=== PATIENT | female | born 1975 | race Caucasian/White ===

== ENCOUNTER 2022-04-28 10:28 | Emergency (ER) | payer MEDICAID, SELFPAY ==
--- NOTE | ~2022-04-28 | XR_ITS ---
EXAMINATION: XR LUMBOSACRAL SPINE CLINICAL INFORMATION: Fall. Pain. COMPARISON: None TECHNIQUE: Three views of the lumbosacral spine. FINDINGS: There is mild curvature of the lower lumbar sacral spine to the left. Bone alignment is otherwise normal. No fracture or dislocation. Disc spaces are normal. Paraspinal soft tissues are normal. XR/XR lumbar spine 2-3V IMPRESSION: No fracture or dislocation.
--- NOTE | ~2022-04-28 | XR_ITS ---
EXAMINATION: XR ANKLE, LEFT CLINICAL INFORMATION: Fall. Pain. COMPARISON: None TECHNIQUE: AP, lateral, and mortise views of the left ankle. FINDINGS: The bones and soft tissues are normal. No fracture. Alignment is anatomic. Joint spaces are maintained. No joint effusion. Small plantar calcaneal spur. XR/XR ankle LT 2V IMPRESSION: Normal left ankle.
--- NOTE | ~2022-04-28 | CT_ITS ---
EXAMINATION: CT CERVICAL SPINE WITHOUT CONTRAST CLINICAL INFORMATION: Neck pain status post fall. COMPARISON: None TECHNIQUE: Multiple axial images of the cervical spine were obtained without the administration of intravenous contrast. Coronal and sagittal reformatted images were obtained. This CT examination was performed using dose optimization techniques as appropriate, variously including the following: *Automated exposure control *Adjustment of mA and/or kV according to patient size (this includes techniques or standardized protocols for targeted exams where dose is matched to indication/reason for exam; i.e. extremities or head) *Use of iterative reconstruction technique DLP: 724.73 mGy-cm FINDINGS: Mild cervical dextroscoliosis is seen with straightening of the normal cervical lordosis and spinal alignment. The vertebral bodies are intact. The intervertebral disc spaces are unremarkable. The neural foramina are patent. The facet joints are unremarkable. The odontoid and spinous processes are intact. The transverse processes are intact. The cervical soft tissues are unremarkable. There is no lymphadenopathy. The thyroid gland is unremarkable. The visualized lung bases are unremarkable. CT/CT cervical spine wo IV con IMPRESSION: Mild cervical dextroscoliosis with straightening of the normal cervical lordosis may be secondary to positioning and/or muscle spasm. No acute abnormality.
--- NOTE | ~2022-04-28 | CT_ITS ---
EXAMINATION: CT HEAD WITHOUT CONTRAST CLINICAL INFORMATION: Status post fall with head pain. COMPARISON: None TECHNIQUE: Contiguous axial imaging was performed from the skull base to vertex without intravenous administration of contrast. Coronal and sagittal reformatted images were obtained. This CT examination was performed using dose optimization techniques as appropriate, variously including the following: *Automated exposure control *Adjustment of mA and/or kV according to patient size (this includes techniques or standardized protocols for targeted exams where dose is matched to indication/reason for exam; i.e. extremities or head) *Use of iterative reconstruction technique DLP: 724.73 mGy-cm FINDINGS: The cortical sulci are normal. The lateral ventricles are symmetrical. The third and fourth ventricles are in their normal midline position. The basilar and prepontine cisterns are unremarkable. There is no acute intra or extracerebral abnormality. There is no mass effect or midline shift. Sections through the bony calvarium are unremarkable. The paranasal sinuses show mild mucosal thickening posteriorly in the maxillary sinuses. No air-fluid levels. The bony orbits and orbital contents are unremarkable. CT/CT head/brain wo IV con IMPRESSION: No acute intracranial pathology.
--- NOTE | ~2022-04-28 | XR_ITS ---
EXAMINATION: XR KNEE, LEFT CLINICAL INFORMATION: Fall. Pain. COMPARISON: None TECHNIQUE: Four views of the left knee. FINDINGS: Bone alignment is normal. There is depression and cortical deformity of the lateral tibial plateau. This probably represent changes from old trauma. No definite acute fracture. Small osteophytes at the medial femoral tibial joint. No joint effusion. XR/XR knee LT 4V IMPRESSION: Probable old trauma to the lateral tibial plateau. Mild degenerative changes at the medial femoral tibial joint.
--- NOTE | 2022-04-28 10:34 | ED.FALL ---
HPI - Fall General Chief Complaint: Fall Stated Complaint: UNWIT FALL,MID BACK,L KNEE PAIN,+CCOLLAR PER EMS Time Seen by Provider: 04/28/22 10:32 Source: patient, EMS and interpreter for the deaf Mode of arrival: EMS Limitations: language barrier History of Present Illness HPI Narrative: 47-year-old female with a history of migraines, carpal tunnel with chronic pain on tramadol, asthma presents with complaints of left knee pain, left ankle pain, low back pain and neck pain after a fall. Patient tells me she was walking in her kitchen when her right knee gave out on her causing her to fall landing on the left knee directly. Patient reports she then fell backwards hitting her lower back and her neck. Denies hitting her head or loss of consciousness. She reports that she has chronic right knee pain with instability which she has had for some time. No AC therapy use. No chest pain, abdominal pain, headache, vision changes, vomiting, weakness, numbness or tingling of the extremities Related Data Previous Rx's Medication Instructions Recorded cyclobenzaprine 10 mg tablet 10 mg PO TID PRN muscle spasm #10 04/28/22 tabs ibuprofen 600 mg tablet 600 mg PO Q6H PRN pain #30 tabs 04/28/22 Allergies Allergy/AdvReac Type Severity Reaction Status Date / Time SEASONAL ALLERGIES Allergy Mild CONGESTION Uncoded 04/28/22 12:31 Seasonal and Environmental - Allergy Unknown Uncoded 04/28/22 12:31 N Review of Systems Review of Systems: Yes all other systems are reviewed and are negative Constitutional: Constitutional: Reports no additional constitutional complaints, Denies body ache(s), Denies chills, Denies fever(s), Denies headache(s) and Denies weakness Eyes: Eyes: Reports no additional eye complaints and Denies change in vision ENT: Reports system reviewed and no additional complaints, except as documented, Denies dizziness, Denies headache(s), Denies nasal congestion, Denies nasal discharge and Reports neck pain Cardiovascular: Cardiovascular: Reports no additional cardiovascular complaints, Denies chest pain, Denies leg edema and Denies dyspnea Respiratory: Respiratory: Reports no additional respiratory complaints, Denies cough and Denies dyspnea Gastrointestinal: Gastrointestinal: Reports no additional gastrointestinal complaints, Denies abdominal pain, Denies diarrhea, Denies nausea and Denies vomiting Genitourinary: Genitourinary: Reports no additional female genitourinary complaints and Denies urinary incontinence Musculoskeletal: Musculoskeletal: Reports no additional musculoskeletal complaints, Reports back pain, Reports arthralgias, Reports joint swelling, Reports limited range of motion, Reports neck pain, Denies numbness and Denies tingling Integumentary/Breasts: Skin/Breast: Reports system reviewed and no additional complaints, except as docu and Denies rash Neurologic: Reports system reviewed and no additional complaints, except as documented, Denies Abnormal speech present, Denies dizziness, Denies headache(s), Denies numbness, Denies tingling and Denies weakness [facility] Past Medical History Attestation statement: The following information was validated with the patient. Source: old records reviewed and nursing notes reviewed Social History Social History (System 04/28/22 @ 12:31 by Jessy Buckley) Advance Directives: No Physical Exam Vital Signs: Vital Signs: Last Vital Signs Temp 97.9 F 04/28/22 15:46 Pulse 68 04/28/22 15:46 Resp 16 04/28/22 15:46 BP 145/66 H 04/28/22 15:46 Pulse Ox 98 04/28/22 15:46 O2 Del Method 04/28/22 15:46 BMI result Body Mass Index 37.0 Const: General: cooperative, healthy appearing, comfortable and no acute distress Orientation/consciousness: patient oriented x3 Limitations: no limitations HEENT: Head: Yes normal to inspection, No Richardson's sign and No raccoon eyes Ears: hearing grossly normal bilaterally and TM's normal bilaterally General nose exam: Normal external nose present Face and sinus: Yes normal facial exam Mouth: Normal oral and palatal mucosa present Throat: Yes posterior oropharynx normal, Yes tonsils normal and Yes uvula midline Eyes: General: appearance normal, both eyes and all related structures Pupils: Equal, round and reactive pupils present Neck: Other: Patient with midline tenderness over the cervical spine with no step-offs deformities. Cervical collar in place. Unable to assess range of motion due to collar in place Neck: Yes normal visual inspection Chest: Chest palpation & inspection: normal inspection of the chest Resp: Effort & Inspection: normal respiratory effort Auscultation: clear to auscultation bilaterally Cardio: Rate: regular rate Rhythm: regular rhythm Peripheral pulses: Peripheral pulses 2+ throughout GI: Inspection: Yes normal to inspection Palpation (GI): Soft to palpation and nontender Auscultation: normal bowel sounds : General: Yes no CVA tenderness Back/Spine/Pelvis: Other: Tenderness over the lumbar mid spine with no step-offs or deformities Back: no CVA tenderness Thoracic/Lumbar Spine: thoracic and lumbar spine normal to inspection Skin: General skin exam: no rashes or lesions noted Neuro: General: patient oriented x3, no focal motor deficits and normal sensation to monofilament Cranial nerves: Yes CN's II-XII intact bilaterally, Yes Equal, round and reactive pupils present, Yes Bilaterally intact EOM present, Yes Nystagmus not present, Yes Normal facial strength present and Yes Midline tongue present Cognition (Neuro): normal cognition Speech: No Abnormal speech present Gait exam (Neuro): Normal gait present Motor exam (neuro): 5/5 motor strength present throughout Sensory Exam: Normal double simultaneous stimulation for sensation Extrem: Other: Patient with tenderness and swelling over the left anterior knee. Flexion and extension intact. Unable to assess ligamental laxity due to pain on exam. Patient has palpable dorsalis pedis and posterior tibial pulses. Patient is able to move the foot and ankle with no difficulty. She does have some pain over the lateral left ankle with no appreciable swelling or deformity. Sensation intact distally to the knee. no reports of paresthesias The right knee is normal in appearance. There is full range of motion the knee. No ligamental laxity. No weakness. Sensation is intact distally. General: Yes normal to inspection Course Course Course Narrative: X-rays of the left knee show an old lateral tibial plateau fracture. Patient reports several months ago she had a fall landing on the knee and was unable to move the knee for several weeks but did not seek any medical care for this. No new fracture seen. CT head and cervical spine negative. Lumbar x-ray and ankle x-ray negative. Patient will be placed in Kraig wrap and given crutches for home. Recommend continued analgesia and follow-up with Orthopedics Reevaluation(s) Reevaluation #1: Nursing informed me that patient was unable to use crutches due to some armpit discomfort. Therefore she was given a walker for home. Reviewed worrisome signs and symptoms of when to return to the emergency room. Comfortable plan for discharge home. Medications Administered Discontinued Medications Generic Name Dose Route Start Last Admin Trade Name Freq PRN Reason Stop Dose Admin Ketorolac Tromethamine 60 mg 04/28/22 14:03 04/28/22 14:12 Ketorolac Tromethamine 60 Mg/2 Ml Vial IM 04/28/22 14:04 60 mg ONCE ONE Administration Tramadol HCl 50 mg 04/28/22 10:47 04/28/22 10:51 Tramadol Hcl 50 Mg Tablet PO 04/28/22 10:48 50 mg ONCE ONE Administration Medical Decision Making Medical Decision Making [facility] Narrative: 47-year-old female here with mechanical fall with complaints of low back pain, neck pain, left knee pain, left ankle pain. Will check CT head, CT cervical spine Will obtain x-rays of left knee, left ankle and lower back Will provide analgesia Differential Diagnosis Differential Diagnoses: The differential diagnosis associated with the presentation includes Contusion, fracture, strain Lab Data [facility] Lab Attestation statement: I reviewed the patient's lab results. Independent Interpretation I performed an independent interpretation of an: Plain X-Ray and CT Scan (Ct head/cervical spine negative) Radiology Impression Discussion of test interpretation with radiology: I have reviewed the radiologist's reading. Radiologist Impression: CT head-no intracranial hemorrhage CT cervical spine-Mild cervical dextroscoliosis with straightening of the normal cervical lordosis may be secondary to positioning and/or muscle spasm. No acute abnormality. Ankle b-bom-[id number] left ankle. Knee [id number]-[id number]-[id number] old trauma to the lateral tibial plateau. Mild degenerative changes at the medial femoral tibial joint. Lumbar spine x-ray-no fracture or dislocation Discharge Plan Discharge Clinical Impression: Contusion of knee, left, Acute cervical myofascial strain, Lumbar strain Patient Disposition: Home, Self-Care Instructions: Cervical Strain (ED), Acute Low Back Pain (ED), Contusion in Adults (ED) Additional Instructions: Las radiograf?as de pizarro rodilla izquierda muestran tyson fractura ivan que probablemente se deba a pizarro ca?da anterior. No se observa ninguna nueva fractura. Las radiograf?as de la parte inferior de la columna y del tobillo nikole son normales. La tomograf?a computarizada de pizarro christine y rogelio tambi?n son normales. Utilice la venda Kraig y las muletas lucia los pr?ximos d?as para ayudar con la deambulaci?n. Bovina los medicamentos seg?n lo prescrito para ayudar con el dolor. Seguimiento con ortopedia ambulatoria Prescriptions: New ibuprofen 600 mg tablet 600 mg PO Q6H PRN (Reason: pain) Qty: 30 0RF cyclobenzaprine 10 mg tablet 10 mg PO TID PRN (Reason: muscle spasm) Qty: 10 0RF Referrals: [facility] Orthopedic Surgeons [Provider Group] - 10 days Stand Alone Forms: Work/School Release Interventions: ED Discharge Assessment Last Done: 04/28/22 15:47 Discharge Date/Time: 04/28/22 15:49 Print Language: Malay
[2022-04-28 10:40] VITALS: BP 136/86; BP 151/78; PULSE 83; PULSE 88; RESP 15; TEMP 36.8; O2SAT 95; O2SAT 98; BMI 37.0
[2022-04-28] MEDS: traMADoL HCL 50 MG TABLET PO (10:51)
--- OUTSIDE RECORDS SUMMARY | 2022-04-28 10:53 | XMS_ITS | Continuity of Care Document ---
:1975 Author Organization [facility] Address [address] [place] [id number]- Care Team Providers Name Role Phone Gianni MENDEZ, Hubert Butler Primary Care Physician Encounter [facility] Date(s): 06/09/19 - 06/19/19 [facility] [address] [place] [id number]- [facility] Attending Physician: Dixon Soler Admitting Physician: Dixon Soler Referring Physician: Admtr ArNolan Allergies, Adverse Reactions, Alerts Substance Reaction Severity Status NKA Active Problem List Condition Effective Dates Status Health Status Informant Thrombocytopenia(Confirmed) Active
--- OUTSIDE RECORDS SUMMARY | 2022-04-28 10:53 | XMS_ITS | Continuity of Care Document ---
:1975 Author Organization [facility] Address [address] [place] [id number]- Care Team Providers Name Role Phone Hubert Archer MD Primary Care Physician [phone] [facility]counter [id number] Date(s): 12/04/20 - 06/14/21 [facility] [address] [address] Attending Physician: Alonso Villagomez MD Referring Physician: Hubert Archer MD Allergies, Adverse Reactions, Alerts No Known Allergies Problem List Condition Effective Dates Status Health Status Informant Thrombocytopenia(Confirmed) Active
--- OUTSIDE RECORDS SUMMARY | 2022-04-28 10:53 | XMS_ITS | Continuity of Care Document ---
:1975 Author Organization [facility] Address [address] [place] [id number]- Care Team Providers Name Role Phone Gianni MENDEZ, Hubert Butler Primary Care Physician Encounter [facility] Date(s): 05/15/21 - 06/14/21 [facility] [address] [id number] Attending Physician: Dixon Soler Admitting Physician: Dixon Soler Referring Physician: Dixon Soler Allergies, Adverse Reactions, Alerts No Known Allergies Problem List Condition Effective Dates Status Health Status Informant Thrombocytopenia(Confirmed) Active
[2022-04-28] MEDS: Ketorolac Tromethamine 60 MG/2 ML VIAL IM (14:12)
[2022-04-28 15:46] VITALS: BP 145/66; PULSE 68; RESP 16; TEMP 36.6; O2SAT 98
== END 2022-04-28 15:49 | disposition home or self-care (01) ==
PROVIDERS: Emergency Provider Emergency Medicine; PCP Registered Nurse Community Health
DX: M25.562 Pain in left knee (principal); M54.2 Cervicalgia; M54.50 Low back pain, unspecified; R51.9 Headache, unspecified; M25.572 Pain in left ankle and joints of left foot; Z79.899 Other long term (current) drug therapy
CPT/HCPCS: 70450; 72100; 72125; 73564; 73600; 96372; 99284; J1885

== ENCOUNTER 2022-06-10 13:57 | Outpatient (REF) | payer MEDICAID, SELFPAY ==
--- NOTE | ~2022-06-10 | XR_ITS ---
EXAMINATION: XR KNEE AP STANDING. XR KNEE, LEFT CLINICAL INFORMATION: Pain right knee. COMPARISON: Left knee 04/28/2022. TECHNIQUE: AP bilateral standing view of the knees was obtained. [place] view left knee. Findings: Ap Bilateral Knee: There is mild reduction in the medial compartment joint space both knees with mild periarticular spurring. There is mild depression and mild deformity of lateral tibial plateau. No additional bony abnormalities seen. The soft tissues are normal. [place] View: A single sunrise view of left knee reveals patellofemoral compartment joint space to be normal. There is lateral patellar spurring. No fracture or lytic process seen. XR/XR knee LT 1V IMPRESSION: Mild degenerative changes medial compartment both knees with periarticular spurring. No fracture. There is depression of lateral tibial plateau and mild deformity likely of old fracture; this was present on the previous left knee exam 04/28/2022.
--- NOTE | ~2022-06-10 | XR_ITS ---
EXAMINATION: XR KNEE AP STANDING. XR KNEE, LEFT CLINICAL INFORMATION: Pain right knee. COMPARISON: Left knee 04/28/2022. TECHNIQUE: AP bilateral standing view of the knees was obtained. [place] view left knee. Findings: Ap Bilateral Knee: There is mild reduction in the medial compartment joint space both knees with mild periarticular spurring. There is mild depression and mild deformity of lateral tibial plateau. No additional bony abnormalities seen. The soft tissues are normal. [place] View: A single sunrise view of left knee reveals patellofemoral compartment joint space to be normal. There is lateral patellar spurring. No fracture or lytic process seen. XR/XR knee standing BI IMPRESSION: Mild degenerative changes medial compartment both knees with periarticular spurring. No fracture. There is depression of lateral tibial plateau and mild deformity likely of old fracture; this was present on the previous left knee exam 04/28/2022.
== END 2022-06-10 13:58 | disposition home or self-care (01) ==
LOC: HO.HOSX 13:57
PROVIDERS: Visit Provider Physician Assistant
DX: M17.12 Unilateral primary osteoarthritis, left knee (principal)
CPT/HCPCS: 73560; 73565; 99202

== ENCOUNTER 2022-07-22 13:11 | Outpatient (REF) | payer MEDICAID, SELFPAY ==
--- NOTE | ~2022-07-22 | MR_ITS ---
EXAMINATION: MR KNEE WITHOUT CONTRAST, LEFT CLINICAL INFORMATION: Fall approximately 3 months ago. Persistent left knee pain. COMPARISON: Most recent left knee radiographs dated 06/10/2022. TECHNIQUE: MRI of the knee without contrast was performed using routine sequences on a high-field scanner. FINDINGS: MENISCI: Medial Meniscus: Intact. Lateral Meniscus: Attenuation/fraying of the anterior root. LIGAMENTS: Cruciate: Intact. Collateral: Intact. EXTENSOR MECHANISM: Intact quadriceps and patellar tendons. Normal patellofemoral alignment. ARTICULAR CARTILAGE/BONE: Patellofemoral Compartment: Focal medial patellar facet full-thickness fissuring with underlying subchondral cystic change. Inferior lateral patellar signal heterogeneity and thinning. Tiny marginal osteophytes. Medial Compartment: Articular cartilage thinning with tiny marginal osteophytes. Lateral Compartment: Cortical irregularity at the posterolateral aspect of the lateral tibial plateau, likely indicating the sequela of a remote fracture. No marrow edema to suggest acute osseous injury. Overlying articular cartilage loss with underlying subchondral cystic change and small marginal osteophytes. Cortical depression in this area measures up to 0.4 cm in craniocaudal dimension. JOINT FLUID AND BURSAE: Small joint effusion. MR/MR knee LT wo con IMPRESSION: Attenuation/fraying of the lateral meniscus anterior root. Mild tricompartmental osteoarthritis. Small joint effusion. Cortical irregularity at the posterolateral aspect of the lateral tibial plateau, likely indicating the sequela of a remote fracture. No marrow edema to suggest acute osseous injury.
[2022-07-22 13:58] LABS: MANUAL DIFF FLAG NO
[2022-07-22 14:44] LABS: Basophils Percent Auto 0.4 % (0-2); Eosinophils Absolute Auto 0.1 X10*3/uL (0.0-0.4); Eosinophils Percent Auto 0.9 % (0-4); Hemoglobin 11.6 g/dl (12.0-16.0); Imm Gran Abs Auto 0.06 X10*3/uL (0.00-0.03); Imm Gran Pct Auto 0.7 % (0.0-0.4); Lymphocytes Absolute Auto 2.1 X10*3/uL (1.2-4.9); Lymphocytes Percent Auto 23.2 % (20-40); Mean Corpuscular HGB Conc 32.2 g/dl (31.0-35.0); Mean Corpuscular Hemoglobin 27.8 pg (27.0-33.0); Mean Corpuscular Volume 86.3 fL (80.0-98.0); Mean Platelet Volume 14.1 fL (9.4-12.3); Monocytes Absolute Auto 0.8 X10*3/uL (0.1-1.2); Monocytes Percent Auto 8.9 % (2-11); Neutrophils Absolute Auto 5.9 x10*3/uL (2.0-8.3); Neutrophils Percent Auto 65.9 % (45-73); Platelet Count 154 X10*3/uL (160-400); Red Blood Count 4.17 X10*6/uL (4.20-5.50); Red Cell Distribution Width 13.5 % (11.0-16.0); White Blood Count 8.9 X10*3/uL (4.8-10.8)
== END 2022-07-22 13:12 | disposition home or self-care (01) ==
LOC: HO.LAB 13:11
PROVIDERS: PCP General Practice; Visit Provider Surgery
DX: K42.9 Umbilical hernia without obstruction or gangrene (principal); D69.6 Thrombocytopenia, unspecified; M17.12 Unilateral primary osteoarthritis, left knee; S82.143A Displaced bicondylar fracture of unspecified tibia, initial encounter for closed fracture; W19.XXXA Unspecified fall, initial encounter; Y93.9 Activity, unspecified; Y92.9 Unspecified place or not applicable; Y99.9 Unspecified external cause status; Z79.899 Other long term (current) drug therapy
CPT/HCPCS: 36415; 73721; 85025; 99202

== ENCOUNTER → 2022-08-21 11:53 | Outpatient (BNVA) | payer MEDICAID, SELFPAY | PROVIDERS: PCP General Practice; Visit Provider Physician Assistant ==

== ENCOUNTER 2024-09-29 14:29 | Outpatient (REF) | payer MEDICAID, SELFPAY ==
[2024-09-29 16:35] LABS: Estimated Average Glucose 131 mg/dL; Hemoglobin A1C 134.7445 umol/L; Hemoglobin A1c % 6.2 % (<6.0); Total Hemoglobin (HGBA1C) 3027.0092 umol/L
[2024-09-29 16:50] LABS: Alanine Aminotransferase 25 U/L (0-31); Albumin Level 4.1 g/dL (3.5-5.0); Alkaline Phosphatase 65 U/L (39-117); Anion Gap 12 (12-20); Aspartate Amino Transferase 21 U/L (5-31); Bilirubin Total 0.2 mg/dL (0.0-1.0); Blood Urea Nitrogen 13 mg/dL (9-16); Calcium 9.2 mg/dL (8.4-10.2); Carbon Dioxide 26 mmol/L (22-29); Chloride 106 mmol/L (96-108); Estimated Glomerular Filt Rate > 60; Glucose Random 87 mg/dL (60-115); Potassium 3.7 mmol/L (3.3-5.1); Sodium 140 mmol/L (135-145); Total Protein 7.5 g/dL (6.5-8.0)
[2024-09-29 16:56] LABS: TSH reflex Free T4 0.32 uIU/mL (0.32-4.0)
== END 2024-09-29 14:30 | disposition home or self-care (01) ==
LOC: HO.HHCL 14:29
PROVIDERS: Visit Provider General Practice
DX: R63.5 Abnormal weight gain (principal)
CPT/HCPCS: 36415; 80053; 83036; 84443